=== PATIENT | female | born 1965 | race Caucasian/White ===

== ENCOUNTER 2019-01-24 10:14 | Day surgery (SDC) | payer OTHER ==
[2019-01-19 09:12] VITALS: BMI 37.5
[2019-01-24 10:45] VITALS: TEMP 97.6
[2019-01-24 12:45] VITALS: BP 131/78; PULSE 70
== END 2019-01-24 12:35 | disposition home or self-care (01) ==
LOC: FASU-ENDO 10:14
PROVIDERS: ATTEND Internal Medicine Gastroenterology
PROC: 0DJD8ZZ Inspection of Lower Intestinal Tract, Via Natural or Artificial Opening Endoscopic (ICD-10-PCS; principal; 2019-01-24 11:42)
DX: Z12.11 Encounter for screening for malignant neoplasm of colon (principal); K64.1 Second degree hemorrhoids